=== PATIENT | male | born 1965 | race Caucasian/White ===

== ENCOUNTER 2017-08-29 12:05 | Emergency (ER) | payer BC ==
[2017-08-29] MEDS ORDERED: Ketorolac 60 MG/2 ML SDV IM ONE (12:31)
[2017-08-29 12:33] VITALS: BP 134/76
--- NOTE | 2017-08-29 12:33 | EDM.PDOC ---
ED HPI GENERAL MEDICAL PROBLEM - General Chief Complaint: Back Pain or Injury Stated Complaint: LOWER BACK PAIN AND LT LEG IS GOING NUMB Time Seen by Provider: 08/29/17 12:32 Source of Information: Reports: Patient - History of Present Illness INITIAL COMMENTS - FREE TEXT/NARRATIVE: HISTORY AND PHYSICAL: History of present illness: []Patient with low back pain and history of low back pain and L4-L5 discectomy 10 years prior presents with low back pain after a fall on his steps 4 days prior, complains of 8 out of 10 low back pain radiating down the posterior left leg and sciatic distribution No footdrop saddle anesthesia or bowel or urine symptoms no fever nausea vomiting chills sweats no head injury or loss of consciousness Review of systems: As per history of present illness and below otherwise all systems reviewed and negative. Past medical history: As per history of present illness and as reviewed below otherwise noncontributory. Surgical history: As per history of present illness and as reviewed below otherwise noncontributory. Social history: No reported history of drug or alcohol abuse. Family history: As per history of present illness and as reviewed below otherwise noncontributory. Physical exam: HEENT: Atraumatic, normocephalic, pupils reactive, negative for conjunctival pallor or scleral icterus, mucous membranes moist, throat clear, neck supple, nontender, trachea midline. Lungs: Clear to auscultation, breath sounds equal bilaterally, chest nontender. Heart: S1S2, regular, negative for clicks, rubs, or JVD. Abdomen: Soft, nondistended, nontender. Negative for masses or hepatosplenomegaly. Negative for costovertebral tenderness. Pelvis: Stable nontender. Genitourinary: Deferred. Rectal: Deferred. Extremities: Atraumatic, negative for cords or calf pain. Neurovascular unremarkable. Neuro: Awake, alert, oriented. Cranial nerves II through XII unremarkable. Cerebellum unremarkable. Motor and sensory unremarkable throughout. Exam nonfocal. Diagnostics: []Lumbar spine Therapeutics: []Toradol 60 IM [place] 5 per 325 one by mouth now [place] #30 Flexeril No. 30 Impression: []Sciatic distribution pain Previous discectomy L4-L5 Definitive disposition and diagnosis as appropriate pending reevaluation and review of above. sciatica Pain Score (Numeric/FACES): 10 - Related Data Allergies Allergy/AdvReac Type Severity Reaction Status Date / Time No Known Allergies Allergy Verified 08/29/17 12:29 Home Meds: Home Meds Simvastatin [Zocor] 40 mg PO BEDTIME 08/29/17 [History] Temazepam 15 mg PO BEDTIME PRN 08/29/17 [History] Social & Family History - Tobacco Use Smoking Status *Q: Current Every Day Smoker Years of Tobacco use: 34 Used Tobacco, but Quit: No Second Hand Smoke Exposure: No - Alcohol Use Days Per Week of Alcohol Use: 0 - Recreational Drug Use Recreational Drug Use: No ED ROS GENERAL - Review of Systems Review Of Systems: ROS reveals no pertinent complaints other than HPI. ED EXAM, GENERAL - Physical Exam Exam: See Below Course - Vital Signs Last Recorded V/S: Last Vital Signs Temp 97.6 F 08/29/17 12:29 Pulse 81 08/29/17 12:29 Resp 18 08/29/17 12:29 BP 134/76 08/29/17 12:29 Pulse Ox 98 08/29/17 12:29 - Orders/Labs/Meds Orders: Active Orders 24 hr Category Date Time Status Lumbar Spine 2 or 3V [CR] Stat Exams 08/29/17 12:31 Taken Meds: Medications Discontinued Medications Generic Name Dose Route Start Last Admin Trade Name Freq PRN Reason Stop Dose Admin Hydrocodone Bitart/Acetaminophen 1 tab 08/29/17 13:39 08/29/17 14:19 [place] 325-5 Mg PO 08/29/17 13:40 1 tab ONETIME ONE Administration Ketorolac Tromethamine 60 mg 08/29/17 12:31 08/29/17 12:56 Toradol IM 08/29/17 12:32 60 mg ONETIME ONE Administration Departure - Departure Time of Disposition: 14:22 Disposition: Home, Self-Care 01 Condition: Good Clinical Impression: Acute exacerbation of chronic low back pain - Discharge Information Referrals: Fidencio Bloom DO [Primary Care Provider] - Forms: ED Department Discharge Additional Instructions: Medication as prescribed Return if symptoms persist or worsen 48 hours off work Follow-up with Dr. Bloom on Friday as scheduled The following information is given to patients seen in the emergency department who are being discharged to home. This information is to outline your options for follow-up care. We provide all patients seen in our emergency department with a follow-up referral. The need for follow-up, as well as the timing and circumstances, are variable depending upon the specifics of your emergency department visit. If you don't have a primary care physician on staff, we will provide you with a referral. We always advise you to contact your personal physician following an emergency department visit to inform them of the circumstance of the visit and for follow-up with them and/or the need for any referrals to a consulting specialist. The emergency department will also refer you to a specialist when appropriate. This referral assures that you have the opportunity for follow-up care with a specialist. All of these measure are taken in an effort to provide you with optimal care, which includes your follow-up. Under all circumstances we always encourage you to contact your private physician who remains a resource for coordinating your care. When calling for follow-up care, please make the office aware that this follow-up is from your recent emergency room visit. If for any reason you are refused follow-up, please contact the [facility] emergency department at and asked to speak to the emergency department charge nurse. - My Orders Last 24 Hours: My Active Orders 08/29/17 12:31 Lumbar Spine 2 or 3V [CR] Stat - Assessment/Plan Last 24 Hours: My Active Orders 08/29/17 12:31 Lumbar Spine 2 or 3V [CR] Stat
[2017-08-29] MEDS ORDERED: Acetaminophen/HYDROcodone 325-5 MG Tab PO ONE (13:39)
--- NOTE | 2017-08-29 14:02 | CR ---
EXAM DATE: 08/29/17 PATIENT'S AGE: 52 Patient: LATOSHA FRITZ Facility: [place], [place] Site . Site : 1965 Study: XRay Pelvis [id number] 1:28:34 PM Ordering Physician: Fatuma Mayer Final Report: INDICATION: Pain. Fell. TECHNIQUE: Pelvis 1 view. COMPARISON: None. FINDINGS: Bones: Alignment is normal. No fractures or bone lesions. Joint spaces: Unremarkable. Soft tissues: Unremarkable. IMPRESSION: Unremarkable pelvis. Dictated by: Yrn Honeycutt MD @ 08/29/2017 13:42:12 (Electronic Signature) Report Signed by Proxy. [facility]
--- NOTE | 2017-08-29 16:01 | CR ---
EXAM DATE: 08/29/17 PATIENT'S AGE: 52 Patient: LATOSHA FRITZ Facility: [place], [place] Site . Site : 1965 Study: XRay Spine Lumbar [id number] 1:25:35 PM Ordering Physician: Fatuma Mayer Final Report: INDICATION: Fall. TECHNIQUE: Lumbar spine 3 view COMPARISON: None FINDINGS: Bones: Alignment is normal. No fractures or significant bone lesions. Joints: There is multilevel disc space narrowing. No other degenerative changes. Soft tissues: Unremarkable. IMPRESSION: Multilevel disc space narrowing. No sign of acute injury. Dictated by Yrn Honeycutt MD @ 08/29/2017 2:19:26 PM Dictated by: Yrn Honeycutt MD @ 08/29/2017 14:19:30 (Electronic Signature) Report Signed by Proxy. [facility]
== END 2017-08-29 14:45 | disposition home or self-care (01) ==
LOC: MW.ED 12:05
DX: M54.42 Lumbago with sciatica, left side (principal); G89.29 Other chronic pain; F17.210 Nicotine dependence, cigarettes, uncomplicated
CPT/HCPCS: 72100; 72170; 96372; 99283; A9270; J1885

== ENCOUNTER 2017-11-24 17:29 | Emergency (ER) | payer BC ==
--- NOTE | 2017-11-24 17:39 | EDM.PDOC ---
ED HPI GENERAL MEDICAL PROBLEM - General Stated Complaint: LT ARM NUMBNESS Time Seen by Provider: 11/24/17 17:30 Source of Information: Reports: Patient History Limitations: Reports: No Limitations - History of Present Illness INITIAL COMMENTS - FREE TEXT/NARRATIVE: HISTORY AND PHYSICAL: History of present illness: Patient is a 52-year-old male who presents to the emergency room today with complaints of numbness and tingling to his left arm. He states this has been intermittently progressive over the past several weeks. Pain starts at the fingertips been "shoots up" his arm into his pain, pain is more so when his arm is resting against something or elevated. Numbness/tingling is worse in the evening. States he intermittently gets midsternal chest pressure which goes into his left shoulder. Currently denies any chest pain but did have this "pressure" earlier today. Denies any fever, chills, chest pain, shortness of breath, abdominal pain, nausea, vomiting or diarrhea. States he previously had episodes of this chest pain which he presented to the emergency room for, was told that "his heart was fine" and was encouraged to follow up with his primary care provider. Through his primary care visits he did find he had elevated cholesterol and was told he may have had a "old heart attack". He has not since seen his primary care provider nor has he seen a family and consumer science professor. Review of systems: As per history of present illness and below otherwise all systems reviewed and negative. Past medical history: As per history of present illness and as reviewed below otherwise noncontributory. Surgical history: As per history of present illness and as reviewed below otherwise noncontributory. Social history: No reported history of drug or alcohol abuse. Family history: As per history of present illness and as reviewed below otherwise noncontributory. Physical exam: General: Well-developed and well-nourished 52-year-old male. Alert and oriented. Nontoxic appearing and in no acute distress. HEENT: Atraumatic, normocephalic, pupils reactive, negative for conjunctival pallor or scleral icterus, mucous membranes moist, throat clear, neck supple, nontender, trachea midline. Lungs: Clear to auscultation, breath sounds equal bilaterally, chest nontender. Heart: S1S2, regular rate and rhythm Abdomen: Soft, nondistended, nontender. Negative for masses or hepatosplenomegaly. Negative for costovertebral tenderness. Pelvis: Stable nontender. Genitourinary: Deferred. Rectal: Deferred. C-spine/Back: No pinpoint vertebral tenderness upon palpation. Fully ambulatory without difficulty or deficits. Extremities: Atraumatic, strong radial pulses bilaterally, strong grasp bilaterally, cap refill less that 3 seconds. He is negative for cords or calf pain. Neurovascular unremarkable. Neuro: Awake, alert, oriented. Cranial nerves II through XII unremarkable. Cerebellum unremarkable. Motor and sensory unremarkable throughout. Exam nonfocal. CBC, CMP, troponin are normal. EKG is normal sinus rhythm. X-ray shows no infiltration or pneumonia. I did offer the patient admission due to his chest pain symptoms. He declined at this time. He is aware of risks of being discharged with education, and voices understanding. We discussed follow-up to possibly needing a MRI of his back, or may need to see the hand surgeon for carpal tunnel. We'll place the patient in a cockup wrist splints and placed him on prednisone 20 mg 14 days. He does have a follow-up appointment with his primary care provider in a week and a half. He will mention his concerns during that appointment. He denies any further questions at this time. Diagnostics: CBC, CMP, troponin, EKG, chest x-ray Therapeutics: Solu-Medrol IM Impression: Parasthesia, Left forearm/hand Plan: 1. Please wear the cock-up wrist splint until you follow up with primary care. Take the steriod as directed. 2. Start an 81mg Aspirin daily. Please follow up with cardiology, referral has been made. 3. Keep your follow-up appointment with your primary care provider. Return to the ED as needed as discussed. Definitive disposition and diagnosis as appropriate pending reevaluation and review of above. Duration: Chronic Location: Reports: Upper Extremity, Left Left Arm Pain Score (Numeric/FACES): 6 - Related Data Allergies Allergy/AdvReac Type Severity Reaction Status Date / Time No Known Allergies Allergy Verified 11/24/17 17:48 Home Meds: Home Meds Simvastatin [Zocor] 40 mg PO BEDTIME 08/29/17 [History] Prednisone [IMW: predniSONE] 20 mg PO WITHBREAKFAST 10 Days #10 tab 11/24/17 [Rx ] Past Medical History Cardiovascular History: Reports: High Cholesterol Musculoskeletal History: Reports: Back Pain, Chronic Psychiatric History: Reports: Other (See Below) Other Psychiatric History: sleep disorder - Past Surgical History Musculoskeletal Surgical History: Reports: Other (See Below) Other Musculoskeletal Surgeries/Procedures:: discectomy Social & Family History - Family History Family Medical History: Noncontributory - Tobacco Use Smoking Status *Q: Current Every Day Smoker Years of Tobacco use: 34 Packs/Tins Daily: 1 Used Tobacco, but Quit: No Second Hand Smoke Exposure: No - Caffeine Use Caffeine Use: Reports: Coffee Caffeine Use Comment: 4 cups per day - Alcohol Use Days Per Week of Alcohol Use: 0 - Recreational Drug Use Recreational Drug Use: No ED ROS GENERAL - Review of Systems Review Of Systems: ROS reveals no pertinent complaints other than HPI. ED EXAM, GENERAL - Physical Exam Exam: See Below (See dictation) Course - Vital Signs Last Recorded V/S: Last Vital Signs Temp 97.8 F 11/24/17 17:50 Pulse 64 11/24/17 19:04 Resp 18 11/24/17 19:04 BP 106/66 11/24/17 19:04 Pulse Ox 98 11/24/17 18:43 - Orders/Labs/Meds Orders: Active Orders 24 hr Category Date Time Status EKG Documentation Completion [RC] STAT Care 11/24/17 17:56 Active Chest 1V Frontal [CR] Stat Exams 11/24/17 18:11 Taken DME for Discharge [COMM] Stat Oth 11/24/17 19:19 Ordered Labs: Laboratory Tests 11/24/17 11/24/17 Range/Units 18:27 18:27 WBC 12.08 H (4.0-11.0) K/uL RBC 4.88 (4.50-5.90) M/uL Hgb 15.7 (13.0-17.0) g/dL Hct 45.0 (38.0-50.0) % MCV 92.2 (80.0-98.0) fL MCH 32.2 H (27.0-32.0) pg MCHC 34.9 (31.0-37.0) g/dL RDW Std Deviation 43.7 (28.0-62.0) fl RDW Coeff of Luis Enrique 13 (11.0-15.0) % Plt Count 297 (150-400) K/uL MPV 10.30 (7.40-12.00) fL Add Manual Diff YES Neutrophils % (Manual) 53 (48.0-80.0) % Band Neutrophils % 1 % Lymphocytes % (Manual) 34 (16.0-40.0) % Monocytes % (Manual) 10 (0.0-15.0) % Eosinophils % (Manual) 2 (0.0-7.0) % Nucleated RBC % 0.0 /100WBC Absolute Seg Neuts 6.4 H (1.4-5.7) Band Neutrophils # 0.1 Lymphocytes # (Manual) 4.1 H (0.6-2.4) Monocytes # (Manual) 1.2 H (0.0-0.8) Eosinophils # (Manual) 0.2 (0.0-0.7) Nucleated RBCs # 0 K/uL Sodium 140 (136-148) mmol/L Potassium 4.1 (3.5-5.1) mmol/L Chloride 104 (98-107) mmol/L Carbon Dioxide 26.8 (21.0-32.0) mmol/L BUN 20 H (7.0-18.0) mg/dL Creatinine 1.0 (0.8-1.3) mg/dL Est Cr Clr Drug Dosing 82.63 mL/min Estimated GFR (MDRD) > 60.0 ml/min Glucose 86 (74-106) mg/dL Calcium 8.7 (8.5-10.1) mg/dL Total Bilirubin 0.2 (0.2-1.0) mg/dL AST 22 (15-37) IU/L ALT 30 (14-63) IU/L Alkaline Phosphatase 59 (46-116) U/L Troponin I < 0.050 (0.000-0.056) ng/mL Total Protein 7.2 (6.4-8.2) g/dL Albumin 3.4 (3.4-5.0) g/dL Globulin 3.8 H (2.0-3.5) g/dL Albumin/Globulin Ratio 0.9 L (1.3-2.8) Meds: Medications Discontinued Medications Generic Name Dose Route Start Last Admin Trade Name Freq PRN Reason Stop Dose Admin Methylprednisolone Sodium Succinate 125 mg 11/24/17 18:11 11/24/17 18:32 Solu-Medrol IM 11/24/17 18:12 125 mg ONETIME ONE Administration Departure - Departure Time of Disposition: 19:23 Disposition: Home, Self-Care 01 Clinical Impression: Hand paresthesia Qualifiers: Laterality: left Qualified Code(s): R20.2 - Paresthesia of skin - Discharge Information Prescriptions: Prednisone [IMW: predniSONE] 20 mg PO WITHBREAKFAST 10 Days #10 tab Instructions: Paresthesia, [id number] Referrals: PCP,None [Primary Care Provider] - Additional Instructions: The following information is given to patients seen in the emergency department who are being discharged to home. This information is to outline your options for follow-up care. We provide all patients seen in our emergency department with a follow-up referral. The need for follow-up, as well as the timing and circumstances, are variable depending upon the specifics of your emergency department visit. If you don't have a primary care physician on staff, we will provide you with a referral. We always advise you to contact your personal physician following an emergency department visit to inform them of the circumstance of the visit and for follow-up with them and/or the need for any referrals to a consulting specialist. The emergency department will also refer you to a specialist when appropriate. This referral assures that you have the opportunity for follow-up care with a specialist. All of these measure are taken in an effort to provide you with optimal care, which includes your follow-up. Under all circumstances we always encourage you to contact your private physician who remains a resource for coordinating your care. When calling for follow-up care, please make the office aware that this follow-up is from your recent emergency room visit. If for any reason you are refused follow-up, please contact the [facility] Emergency Department at and asked to speak to the emergency department charge nurse. [facility] Primary Care (DR VALDES) and Cardiology (Dr. Marsh) [address] [place] [id number] [facility] Specialty Care - Plastic Surgery Professional Building [address] [place] [address], [address] [place] [address] 1. Please wear the cock-up wrist splint until you follow up with primary care. Take the steriod as directed. 2. Start an 81mg Aspirin daily. Please follow up with cardiology, referral has been made. 3. Keep your follow-up appointment with your primary care provider. Return to the ED as needed as discussed. - My Orders Last 24 Hours: My Active Orders 11/24/17 17:56 EKG Documentation Completion [RC] STAT 11/24/17 18:11 Chest 1V Frontal [CR] Stat 11/24/17 19:19 DME for Discharge [COMM] Stat - Assessment/Plan Last 24 Hours: My Active Orders 11/24/17 17:56 EKG Documentation Completion [RC] STAT 11/24/17 18:11 Chest 1V Frontal [CR] Stat 11/24/17 19:19 DME for Discharge [COMM] Stat
[2017-11-24] MEDS ORDERED: methylPREDNISolone Sodium Succinate 125 MG/2 ML SDV IM ONE (18:11)
[2017-11-24 19:05] LABS: CHLORIDE,CL 104 mmol/L (98-107); SODIUM,NA 140 mmol/L (136-148)
[2017-11-25 02:27] VITALS: BP 106/58
--- NOTE | 2017-11-25 10:12 | CR ---
EXAM DATE: 11/24/17 PATIENT'S AGE: 52 Patient: LATOSHA FRITZ Facility: [place], [place] Site . Site : 1965 Study: XRay Chest [id number] 6:50:03 PM Ordering Physician: Doctor Arana Final Report: INDICATION: CHEST DISCOMFORT, LEFT ARM NUMBNESS. TECHNIQUE: Chest radiograph 1 view COMPARISON: 07/08/2017. FINDINGS: Cardiovascular and mediastinum: The heart silhouette is normal in size and morphology. The mediastinum is normal in appearance. Lungs and pleural spaces: Both lungs are unremarkable in appearance. No sign of pleural effusion seen. No pneumothorax is identified. Bones and soft tissues: No significant findings. 2 screws medial to the right humeral head, unchanged. IMPRESSION: 1. No acute cardiopulmonary disease is seen. Dictated by Ezra Beckford MD @ 11/24/2017 7:04:26 PM Dictated by: Ezra Beckford MD @ 11/24/2017 19:04:33 (Electronic Signature) Report Signed by Proxy. [facility]
== END 2017-11-24 19:40 | disposition home or self-care (01) ==
LOC: MW.ED 17:29
DX: R20.2 Paresthesia of skin (principal); E78.00 Pure hypercholesterolemia, unspecified; F17.210 Nicotine dependence, cigarettes, uncomplicated
CPT/HCPCS: 36415; 71045; 80053; 84484; 85025; 93005; 96372; 99284; J2930

== ENCOUNTER 2018-11-04 10:28 | Day surgery (SDC) | payer BC ==
[~2018-11-04 10:28] MED LIST: Lactated Ringers 1,000 ML IV SCH
[2018-11-04] MEDS ORDERED: Midazolam 1 MG/ML 2 ML SDV ONE (12:05)
[2018-11-04] MEDS ORDERED: fentaNYL 100 MCG/2 ML SDV ONE (12:05)
[2018-11-04] MEDS ORDERED: Lidocaine 2% 5 ML SDV ONE (12:05)
[2018-11-04] MEDS ORDERED: Propofol 200 MG/20 ML SDV ONE ×2 (12:05→12:44)
--- NOTE | 2018-11-04 12:06 | PCM.PREANE ---
Preanesthetic Assessment - Anesthesia/Transfusion/Family Hx Anesthesia History: Prior Anesthesia Without Reaction Family History of Anesthesia Reaction: No Transfusion History: No Prior Transfusion(s) - Review of Systems General: No Symptoms Pulmonary: No Symptoms Cardiovascular: No Symptoms Gastrointestinal: No Symptoms Neurological: No Symptoms Other: Reports: None - Physical Assessment Height: 5 ft 7 in Weight: 82.554 kg ASA Class: 2 Mental Status: Alert & Oriented x3 Airway Class: Mallampati = 2 Dentition: Reports: Normal Dentition ROM/Head Extension: Full Lungs: Clear to Auscultation, Normal Respiratory Effort Cardiovascular: Regular Rate, Regular Rhythm - Allergies Allergies/Adverse Reactions: Allergies Allergy/AdvReac Type Severity Reaction Status Date / Time No Known Allergies Allergy Verified 11/02/18 07:56 - Blood Blood Available: No - Anesthesia Plan Pre-Op Medication Ordered: None - Acknowledgements Anesthesia Type Planned: General Anesthesia, MAC Pt an Appropriate Candidate for the Planned Anesthesia: Yes Alternatives and Risks of Anesthesia Discussed w Pt/Guardian: Yes Pt/Guardian Understands and Agrees with Anesthesia Plan: Yes Additional Comments: PMH: chronic LBP, copd, smoker PLAN: mac/tiva PreAnesthesia Questionnaire HEENT History: Reports: Other (See Below) Other HEENT History: polyp on vocal cord, has top denture and lower partial, wears glasses for reading and driving Cardiovascular History: Reports: High Cholesterol Respiratory History: Reports: COPD, Pneumonia, Recurrent Gastrointestinal History: Reports: Helicobacter Pylori Other Gastrointestinal History: presently on antibiotics for H-pylori Genitourinary History: Reports: None Musculoskeletal History: Reports: Fracture Neurological History: Reports: Seizure Other Neuro History: hx of seizures, last seizure was approx 6 years ago, currently on no meds for this Psychiatric History: Reports: None Endocrine/Metabolic History: Reports: None Hematologic History: Reports: None Immunologic History: Reports: None Oncologic (Cancer) History: Reports: None Dermatologic History: Reports: None - Past Surgical History Head Surgeries/Procedures: Reports: None HEENT Surgical History: Reports: None Cardiovascular Surgical History: Reports: None Respiratory Surgical History: Reports: None GI Surgical History: Male Surgical History: Reports: None Endocrine Surgical History: Reports: None Neurological Surgical History: Reports: Lumbar Spine Other Neurological Surgeries/Procedures: hx back surgery Musculoskeletal Surgical History: Reports: Shoulder Surgery, Other (See Below) Other Musculoskeletal Surgeries/Procedures:: left shoulder surgery, surgical repair of fx rt wrist Oncologic Surgical History: Reports: None Dermatological Surgical History: Reports: None - SUBSTANCE USE Smoking Status *Q: Light Tobacco Smoker Tobacco Use Within Last Twelve Months: Cigarettes - HOME MEDS Home Medications: Home Meds Simvastatin [Zocor] 40 mg PO BEDTIME 08/29/17 [History] Albuterol Sulfate [Proair Hfa] 1 - 2 puff INH ASDIRECTED PRN 11/02/18 [History] Amoxicillin 500 mg PO BID 11/02/18 [History] Clarithromycin 500 mg PO BID 11/02/18 [History] Lansoprazole [Prevacid] 30 mg PO DAILY 11/02/18 [History] - CURRENT (IN HOUSE) MEDS Current Meds: Current Medications Lactated Ringer's (Ringers, Lactated) 1,000 mls @ 125 mls/hr IV ASDIRECTED DEX
[2018-11-04] MEDS ORDERED: Lactated Ringers 1,000 ML IV SCH (13:15)
--- NOTE | 2018-11-04 13:18 | PCM.OPNOTE ---
- General Post-Op/Procedure Note Date of Surgery/Procedure: 11/04/18 Operative Procedure(s): Esophagogastroduodenoscopy with biopsy. Colonoscopy with cold rectal polypectomy. Pre Op Diagnosis: Hematemesis with melena. Hemoccult-positive stool. Helicobacter pylori gastritis Post-Op Diagnosis: Gastritis. Rectal polyp. Poor colon prep. Anesthesia Technique: MAC (ASA II) Primary Surgeon: Daniele Mathew Condition: Good Free Text/Narrative:: DICTATION [id number] CPT CODE [id number]
--- NOTE | 2018-11-04 13:29 | PCM.POSTAN ---
POST ANESTHESIA ASSESSMENT - MENTAL STATUS Mental Status: Alert - RESPIRATORY Respiratory Status: Respiratory Rate WNL - CARDIOVASCULAR CV Status: Pulse Rate WNL - GASTROINTESTINAL GI Status: No Symptoms - POST OP HYDRATION Hydration Status: Adequate & Stable
--- NOTE | 2018-11-04 13:35 | PCM48HPAN ---
Post Anesthesia Note - EVALUATION WITHIN 48HRS OF ANESTHETIC Vital Signs in Normal Range: Yes Patient Participated in Evaluation: Yes Respiratory Function Stable: Yes Airway Patent: Yes Cardiovascular Function Stable: Yes Hydration Status Stable: Yes Pain Control Satisfactory: Yes Nausea and Vomiting Control Satisfactory: Yes Mental Status Recovered: Yes Resp Rate: 20
--- NOTE | 2018-11-04 13:49 | OR ---
SURGEON: Daniele Mathew M.D. DATE OF PROCEDURE: 11/04/2018 OPERATION PERFORMED: Colonoscopy with cold rectal polypectomy. ANESTHESIA: MAC. ASA CLASSIFICATION: II. PREOPERATIVE DIAGNOSIS: Melena. POSTOPERATIVE DIAGNOSIS: Rectal polyp. DESCRIPTION OF PROCEDURE: With the patient having completed esophagogastroduodenoscopy, he was maintained in the left lateral decubitus position. The colonoscope was inserted into the rectum and advanced with moderate difficulty to the cecum. The prep was poor, especially proximally and certainly a small lesion could be identified. Despite multiple maneuvers, I was never able to get the colonoscope to retroflex in the cecum. Several minutes were spent attempting this maneuver without success. It was finally elected to slowly withdraw the scope. Again, the cecum and ascending colon were not well cleansed at all and certainly a small lesion could be identified. There was no grossly obstructing neoplasm noted. The prep was better as we moved distally. The hepatic flexure, transverse colon, splenic flexure, descending colon, and sigmoid colon showed no tumors, polyps, diverticula, or angiodysplastic changes. One small polyp was encountered in the rectum and removed with cold biopsy forceps. The colonoscope was retroflexed to visualize the anal orifice from above. No tumors, polyps, or acute hemorrhoidal changes were noted. The colonoscope was straightened, the rectum aspirated, and the colonoscope removed. The patient tolerated the procedure well and was taken to recovery room in stable condition. TERA / ERIC /[id number]
--- NOTE | 2018-11-04 14:01 | OR ---
SURGEON: Daniele Mathew M.D. DATE OF PROCEDURE: 11/04/2018 OPERATION PERFORMED: Esophagogastroduodenoscopy with gastric biopsy. ANESTHESIA: MAC. ASA CLASSIFICATION: II. PREOPERATIVE DIAGNOSES: 1. Hematemesis with heartburn. 2. Helicobacter pylori gastritis. POSTOPERATIVE DIAGNOSIS: Gastritis. DESCRIPTION OF PROCEDURE: The patient was taken to the endoscopy room and positioned on the endoscopy table in the left lateral decubitus position. Time-out was called for appropriate identification of the patient and procedure. Monitored anesthesia care was provided. A bite block was placed between the patient's teeth. The gastroscope was inserted through the bite block and advanced into the oropharynx and subsequently through the esophagus and stomach into the duodenum where examination was carried out in a retrograde fashion. The duodenum shows no acute inflammatory changes or ulcerations. Stomach does show [id number] gastritis. Antral biopsies were obtained to rule out persistent Helicobacter pylori infection. No acute ulcerations were noted. The gastroscope was retroflexed to visualize the proximal stomach. No acute lesions were identified. No tumors were noted in the cardia. The gastroscope was then straightened and slowly withdrawn carefully visualizing the greater and lesser curvatures. No acute ulcerations or erosions were noted proximally. No varices were identified. The GE junction was well defined and shows no acute inflammatory changes or ulcerations. The esophagus demonstrates fair contractility. No mid or proximal lesions were identified. The vocal cords were visualized as the scope was withdrawn and moved symmetrically. The gastroscope was then removed. Following colonoscopy, the patient was taken to recovery room in stable condition. TERA / ERIC /[id number]
[2018-11-04 14:34] VITALS: BP 106/59
== END 2018-11-04 13:50 | disposition home or self-care (01) ==
LOC: MW.SDS 10:28
PROVIDERS: ATTEND Surgery
DX: K29.51 Unspecified chronic gastritis with bleeding (principal); K62.1 Rectal polyp; E78.1 Pure hyperglyceridemia; E78.00 Pure hypercholesterolemia, unspecified; J44.9 Chronic obstructive pulmonary disease, unspecified; F17.210 Nicotine dependence, cigarettes, uncomplicated; Z86.19 Personal history of other infectious and parasitic diseases; Z79.2 Long term (current) use of antibiotics; Z79.899 Other long term (current) drug therapy
CPT/HCPCS: 43239; 45380; J2001; J2250; J2704; J3010; 88305; 88312